=== PATIENT | female | born 1955 | race Caucasian/White ===

== ENCOUNTER 2019-05-05 12:25 | Emergency (ER) | payer MEDICAID ==
[~2019-05-05] VITALS: Ht 162.6 cm; Wt 53.6 kg
[2019-05-05 12:46] VITALS: BP 122/85
--- NOTE | 2019-05-05 12:49 | NUR ---
PT AMBULATES TO BED 2
--- NOTE | 2019-05-05 12:55 | NUR ---
C/O CHRONIC LOWER BACK PAIN RADIATING TO BL HIP WORSE ON LT HIP WORSENING BEGINNING OF THIS YEAR. DENIES RECENT INJURY ITS JUST FROM "BENDING" OVER. DENIES UTI SX OR HEMATURIA. PATIENT STATES PAIN OF 2/10 AT THIS TIME; VSS; PATIENT POSITIONED FOR COMFORT; HOB ELEVATED; BEDRAILS UP X1; BED DOWN. ER MD MADE AWARE OF PT STATUS.
[2019-05-05] MEDS ORDERED: KETOROLAC 30 MG/ML VIAL IM ONE (13:10)
--- NOTE | 2019-05-05 13:20 | NUR ---
PT IS BACK FROM XRAY.
[2019-05-05 13:56] VITALS: BP 118/75
== END 2019-05-05 13:56 | disposition home or self-care (01) ==
LOC: MED 12:25
DX: M25.552 Pain in left hip (principal); M25.551 Pain in right hip
CPT/HCPCS: 73502; 96372; 99283; J1885